=== PATIENT | female | born 2000 | race Hispanic/Latino ===

== ENCOUNTER 2020-08-31 01:54 | Emergency (ER) | payer MEDICAID, SELFPAY ==
--- NOTE | 2020-08-31 03:03 | ER ---
Nurse's Notes [facility] Name: Keisha Monroy Age: 20 yrs Sex: Female : 2000 Arrival Date: 08/31/2020 Time: 01:59 Bed Waiting Private MD: Diagnosis: Presentation: 08/31 02:53 Chief complaint: Patient states: pain that started in back while sleeping, pain em radiates into chest, had similar episode 5 months ago and was told it was gallstones, denies abd pain, fever or N/V/D. Coronavirus screen: Client denies travel out of the [place] in the last 14 days. Ebola Screen: Patient negative for fever greater than or equal to 101.5 degrees Fahrenheit, and additional compatible Ebola Virus Disease symptoms Patient denies exposure to infectious person. Patient denies travel to an Ebola-affected area in the 21 days before illness onset. No symptoms or risks identified at this time. Initial Sepsis Screen: Does the patient meet any 2 criteria? No. Patient's initial sepsis screen is negative. Does the patient have a suspected source of infection? No. Patient's initial sepsis screen is negative. Risk Assessment: Do you want to hurt yourself or someone else? Patient reports no desire to harm self or others. Onset of symptoms was August 31, 2020. 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 - Social history:: Smoking status: Patient denies any tobacco usage or history of. Vital Signs: 02:53 BP 136 / 80; Pulse 84; Resp 18; Temp 97.8; Pulse Ox 99% on R/A; Weight 99.79 kg; Height em 5 ft. 7 in. (170.18 cm); Pain 0/10; 02:53 Body Mass Index 34.46 (99.79 kg, 170.18 cm) em ED Course: :59 Patient arrived in ED. bp1 02:56 Triage completed. em 02:57 Arm band placed on. em Administered Medications: No medications were administered Outcome: 03:02 Patient left the ED. em Signatures: Derrek Martinez, RN RN em Leslie Myers
[2020-08-31 03:07] VITALS: BP 136/80; TEMP 97.8; O2SAT 99
== END 2020-08-31 03:02 | disposition left against medical advice (07) ==
LOC: ER 01:54
DX: R07.9 Chest pain, unspecified (principal); Z53.21 Procedure and treatment not carried out due to patient leaving prior to being seen by health care provider
CPT/HCPCS: 99281

== ENCOUNTER 2021-02-08 06:28 | Day surgery (SDC) | payer OTHER ==
[2021-02-07 15:44] LABS: Absolute Lymphocytes (CBC) 1.9 K/uL (0.7-4.9); Basophils % 0.6 % (0-1.3); Hematocrit 35.9 % (36.0-45.0); Lymphocytes % 37.6 % (15.3-44.8); MPV 8.1 fL (7.6-11.3)
[2021-02-07 16:17] LABS: ALT/SGPT 18 U/L (12-78); AST/SGOT 16 U/L (15-37); Albumin 3.9 g/dL (3.4-5.0); Alkaline Phosphatase 82 U/L (45-117); Amylase 47 U/L (25-115); BUN Blood Urea Nitrogen 11 mg/dL (7-18); Bicarbonate 28 mmol/L (21-32); Bilirubin Direct 0.1 mg/dL (0-0.2); Bilirubin Total 0.5 mg/dL (0.2-1.0); Glucose Level 84 mg/dL (74-106); Lipase 60 U/L (73-393); Potassium 3.9 mmol/L (3.5-5.1); Protein, Total 7.6 g/dL (6.4-8.2); Sodium Level 142 mmol/L (136-145)
[2021-02-08] MEDS ORDERED: Ringers Lactate 1,000 ML IV ONE (07:06)
[2021-02-08] MEDS: CEFOXITIN/SWI 1gm 1 GM/10 ML SYR ONE ×3 (07:28→07:45)
[2021-02-08] MEDS ORDERED: propofoL 200 MG/20 ML VIAL IV ONE (07:34)
[2021-02-08] MEDS ORDERED: MIDAZOLAM HCL 2 MG/2 ML INJ ONE (07:34)
[2021-02-08] MEDS ORDERED: FENTANYL CITR 250 MCG/5 ML ONE (07:35)
[2021-02-08] MEDS ORDERED: GLYCOPYRROLATE 0.2 MG/ML SYR ONE ×2 (07:35)
[2021-02-08] MEDS ORDERED: ONDANSETRON 4 MG/2 ML VIAL ONE (07:38)
[2021-02-08] MEDS ORDERED: ROCURONIUM 50 MG/5 ML VIAL IV ONE (07:38)
[2021-02-08] MEDS ORDERED: LIDOCAINE 1% MPF 5 ML VIAL ONE (07:40)
[2021-02-08] MEDS ORDERED: dexAMETHasone 10 MG/ML VIAL ONE (08:07)
--- NOTE | 2021-02-08 08:31 | P.BOP ---
Preoperative diagnosis: symptomatic cholelithiasis, acute cholecystitis Postoperative diagnosis: same Primary procedure: Laparoscopic cholecystectomy Estimated blood loss: <10cc Specimen: gb Findings: as above Anesthesia: General Complications: None Transferred to: Recovery Room Condition: Good
[2021-02-08] MEDS ORDERED: EPHEDRINE SULF 50 MG/ML VIAL ONE (08:42)
[2021-02-08] MEDS ORDERED: HYDROCODONE/APAP 10/325 TAB ONE (10:30)
[2021-02-08 10:41] VITALS: BP 94/35; TEMP 97.7; O2SAT 99
--- NOTE | 2021-02-08 13:04 | OP ---
Date of Procedure: 02/08/2021 Surgeon: Walter Ross MD Diagnoses: Symptomatic cholelithiasis, acute cholecystitis. Postoperative Diagnoses: Symptomatic cholelithiasis, acute cholecystitis. Procedure: Laparoscopic cholecystectomy. Estimated Blood Loss: Less than 10 cc. Specimen: Gallbladder. Anesthesia: General plus local. Indications For Procedure: This is the case of a female, who comes to us with acute cholecystitis, s ymptomatic cholelithiasis. The benefits, alternatives, and risks of laparoscopic, possible open chol ecystectomy were fully explained which include, but not limited to infection, bleeding, damage to adj acent structures, anesthesia complication, choledocholithiasis, bile leak, pancreatitis, DE, and even . She also understands this may not relieve any symptoms. She might need more than one surgic al intervention. She understood, signed a consent. Description Of Procedure: The patient brought to the operating room, placed in supine position. Ane sthesia was done without complication. Abdominal area was prepped and draped in sterile fashion. Ma rcaine 0.5% was injected for local anesthetic followed by sharp incision of the skin in the infraumbi lical region. Incision was carried down to fascia, which was opened under direct vision. Peritoneum was encountered and opened under direct vision. Vicryl #1 placed inside the fascia. Maryann trocar was carefully introduced. No bleeding was obtained. I placed 3 more trocars, 5 mm each one of them in the right upper quadrant and epigastric area under direct visualization. This allowed me to put a grasper in the fundus of the gallbladder and another 1 in the infundibulum and the gallbladder was r etracted in the inferolateral fashion exposing the triangle of Calot obtaining critical view. The cy stic duct and cystic artery were clearly isolated freed circumferentially and a connection between th ose and the gallbladder were clearly identified. I proceeded to ligate those by using at least 3 cli ps proximal, 1 clip distal, ligation in middle. Same was done with the cystic artery. No bile leak, no bleeding. The gallbladder was removed from liver using Bovie cauterizer and removed from abdomin al cavity using EndoCatch through the umbilical incision. The area was inspected once again. No darlyn e leak. No bleeding after irrigation and suction. Clips were intact. At that moment, I proceeded t o remove the trocars under direct vision. Deflated pneumoperitoneum. Closed the fascia with #1 Vicr yl. Irrigated subcutaneous tissue, closed that with 3-0 chromic and skin in a subcuticular fashion w ith 3-0 chromic and Steri-Strips on top. Sponge count, instrument counts were correct. The patient tolerated the procedure well. The patient was sent to recovery in stable condition. Discharge Summary: Diagnoses: Symptomatic cholelithiasis, acute cholecystitis. Procedure: Laparoscopic cholecystectomy disposition home. Activity: As tolerated. No heavy lifting. Plan: Follow up in my office in 1 week. Call for appointment [phone]. Keep the area dry for 48 ho urs, then may shower. Keep Steri-Strip intact. Medications: See orders. HM/MODL Voice ID: [id number] Report ID: [id number]
== END 2021-02-08 11:05 | disposition home or self-care (01) ==
LOC: OR 06:28
PROVIDERS: ATTEND Surgery
PROC: 0FT44ZZ Resection of Gallbladder, Percutaneous Endoscopic Approach (ICD-10-PCS; principal; 2021-02-08 07:30)
DX: K80.10 Calculus of gallbladder with chronic cholecystitis without obstruction (principal); R10.9 Unspecified abdominal pain
CPT/HCPCS: 85025; 80048; 36415; 82150; 84703; 80076; 88304; 83690; 47562; U0003; J2704; J2250; J3010; J1100; J7120; J2405